=== PATIENT | female | born 1975 | race Hispanic/Latino ===

== ENCOUNTER 2018-08-26 10:03 | Emergency (ER) | payer OTHER ==
[~2018-08-26] VITALS: Ht 157.5 cm; Wt 88.9 kg
== END 2018-08-26 11:29 | disposition home or self-care (01) ==
LOC: FSED 10:03
DX: M54.6 Pain in thoracic spine (principal); M54.5 Low back pain; M62.830 Muscle spasm of back; I10 Essential (primary) hypertension; E11.9 Type 2 diabetes mellitus without complications
CPT/HCPCS: 80048; 81003; 99284

== ENCOUNTER 2020-05-30 07:47 | Observation (INO) | payer OTHER ==
[2020-05-28 13:47] LABS: BASOPHILS # (AUTO) 0.1 (0.0-0.1); BASOPHILS % 0.6 % (0.0-1.0); EOSINOPHILS # (AUTO) 0.2 (0.0-0.4); HEMATOCRIT 44.4 % (34.2-44.1); HEMOGLOBIN 14.5 g/dL (12.0-16.0); LYMPHOCYTES # (AUTO) 2.2 (1.0-3.2); LYMPHOCYTES % 24.8 % (18.0-39.1); MEAN CORPUSCULAR HEMOGLOBIN 27.8 pg (28-32); MEAN CORPUSCULAR HGB CONC 32.7 g/dL (31-35); MEAN CORPUSCULAR VOLUME 85.1 fL (81-99); MONOCYTES # (AUTO) 0.5 (0.2-0.8); MONOCYTES % 6.1 % (4.4-11.3); NEUTROPHILS # (AUTO) 5.8 (2.1-6.9); NEUTROPHILS % 65.8 % (38.7-80.0); PLATELET COUNT 269 x10e3/uL (140-360); RED BLOOD COUNT 5.22 x10e6/uL (3.6-5.1); RED CELL DISTRIBUTION WIDTH 13.3 % (11.7-14.4)
[2020-05-28 14:01] LABS: INR 0.83; PARTIAL THROMBOPLASTIN TIME 24.8 seconds (23.8-35.5); PROTHROMBIN TIME 11.8 seconds (11.9-14.5)
[2020-05-28 14:05] LABS: ANION GAP 13.9 mmol/L (8-16); BLOOD UREA NITROGEN 18 mg/dL (7-26); BUN/CREATININE RATIO 25 (6-25); CARBON DIOXIDE 24 mmol/L (22-29); CHLORIDE 104 mmol/L (98-107); CREATININE, SERUM 0.73 mg/dL (0.57-1.11); EST GLOMERULAR FILTRATION RATE > 60 ML/MIN (60-); GLUCOSE 71 mg/dL (74-118); POTASSIUM 3.9 mmol/L (3.5-5.1); SODIUM 138 mmol/L (136-145)
--- NOTE | 2020-05-28 14:26 | Diagnostic Imaging Report ---
EXAMINATION: CHEST 2 VIEWS INDICATION: Preop for hysterectomy ^[id number] ^1355 ^PRE OP COMPARISON: None FINDINGS: TUBES and LINES: None. LUNGS: Lungs are well inflated. Lungs are clear. There is no evidence of pneumonia or pulmonary edema. PLEURA: No pleural effusion or pneumothorax. HEART AND MEDIASTINUM: The cardiomediastinal silhouette is unremarkable. BONES AND SOFT TISSUES: No acute osseous lesion. Soft tissues are unremarkable. UPPER ABDOMEN: No free air under the diaphragm. IMPRESSION: No acute thoracic abnormality. Signed by: Dr. Rolando Spence M.D. on 05/28/2020 2:22 PM
[~2020-05-30] VITALS: Ht 157.5 cm; Wt 88.0 kg
[~2020-05-30 07:47] MED LIST: ATORVASTATIN CA20 MG PO; BASAGLAR K100 UNIT/1 SQ; IBUPROFEN 800MG/ 200ML 200 ML IV ONE; LIDOCAINE HCL (LTA) 4 ML SOLN ONE; LISINOPRIL10 MG PO; OZEMPIC1 MG/0.75 SC; TRICOR48 MG PO
[2020-05-30] MEDS ORDERED: VANCOMYCIN HCL 1 GM VIAL ONE (08:18)
[2020-05-30] MEDS ORDERED: BUPIVACAINE 0.5%/EPI 30 ML SDV INJ ONE (08:18)
[2020-05-30] MEDS ORDERED: THROMBIN FOR SOLN 5,000 UNIT VIAL ONE (08:18)
[2020-05-30] MEDS ORDERED: CELEBREX200 MG PO (08:56)
[2020-05-30] MEDS ORDERED: CEFAZOLIN SOD 1 GM/NS 50ML 100 ML IV ONE (09:18)
[2020-05-30] MEDS ORDERED: DEXTROSE 5% 250ML 250 ML IV ONE (09:35)
[2020-05-30] MEDS ORDERED: HYDROMORPHONE 2MG/ML 2 MG/ML ML IV PRN (11:15)
[2020-05-30] MEDS ORDERED: PROMETHAZINE HCL (IM) 25 MG/ML VIAL IM PRN (11:15)
[2020-05-30] MEDS ORDERED: ACETAMINOPHEN 325 MG TAB PO PRN (11:15)
[2020-05-30] MEDS ORDERED: LACTATED RINGER'S 1,000 ML IV SCH (11:15)
[2020-05-30] MEDS ORDERED: CARISOPRODOL 350 MG TAB PO PRN (11:15)
[2020-05-30] MEDS ORDERED: OXYCODONE/ACETAMINOPHEN 5-325 1 EACH TABLET PO PRN (11:15)
[2020-05-30] MEDS ORDERED: MAGNESIUM/ALUMINUM/SIMETHICONE 30 ML UDC PO PRN (11:15)
[2020-05-30] MEDS ORDERED: MORPHINE SULFATE 5 MG/ML VIAL IM PRN (11:15)
[2020-05-30] MEDS ORDERED: ONDANSETRON HCL INJ 2MG/ML 2ML 2 MG/ML VIAL IV PRN (11:15)
[2020-05-30] MEDS ORDERED: CEPACOL SORE THROAT LOZENGES PO PRN (11:15)
--- NOTE | 2020-05-30 11:40 | Operative Report ---
DATE OF PROCEDURE: 05/30/2020 SURGEON: Dennis Velasquez MD PREOPERATIVE DIAGNOSIS: Right L5-S1 disk herniation with radiculopathy, M51.17. POSTOPERATIVE DIAGNOSIS: Right L5-S1 disk herniation with radiculopathy, M51.17. PROCEDURE: Right L5-S1 laminotomy, medial facetectomy, and microsurgical diskectomy, 20708. ANESTHESIA: General. INDICATIONS: The patient is a woman, who presents with a large right L5-S1 disk herniation with radiculopathy and was taken to surgery for microsurgical diskectomy. PROCEDURE IN DETAIL: After induction of general anesthesia, the patient was placed on the operating table in prone position over a Misael frame. Lumbar region was prepped and draped in sterile fashion. A preoperative x-ray was obtained. A small midline incision was created. Lumbar fascia was opened to the right of midline and a subperiosteal dissection was carried out to expose the right-sided L5 and S1 lamina and the medial aspect of the facet joint. A second x-ray confirmed correct localization. The operating microscope was brought in. A high-speed drill equipped with godwin bur was used to drill the inferior aspect of the lamina of L5 and the medial rim of the L5-S1 facet joint and superior rim of the lamina of S1. The ligamentum flavum was resected. The dural sac and the right S1 nerve root were exposed. The nerve root was slightly retracted medially. The epidural veins were bipolar coagulated and divided with micro scissors. The herniated disk material immediately came into view, markedly compressing the S1 nerve root. The posterior longitudinal ligament was incised with a #11 blade and herniated disk material was retrieved with micro pituitary and removed as a large fragment of disk. The opening into the annulus of the disk was enlarged with a #11 blade and loose contents of the disk were thoroughly evacuated with curettes and pituitary instruments. Meticulous hemostasis was secured. Retractor was removed. The lumbar fascia was closed with 0 Vicryl suture. Subcutaneous layer was closed with 2-0 Vicryl sutures and the skin was closed with 3-0 Monocryl sutures in subcuticular fashion. Steri-Strips and dressing were applied. The patient was awakened, extubated, and taken to postanesthesia care unit in stable condition. No intraoperative complications were encountered. ESTIMATED BLOOD LOSS: 10 mL. MD KESHIA Bazan /[id number]
[2020-05-30] MEDS ORDERED: DEXAMETHASONE SOD PHOS INJ 4 MG/ML VIAL ONE (12:36)
[2020-05-30] MEDS ORDERED: GLYCOPYRROLATE INJ 0.2 MG/ML VIAL ONE (12:36)
[2020-05-30] MEDS ORDERED: SEVOFLURANE INHAL SOLN 250 ML PEN BTL ONE (12:36)
[2020-05-30] MEDS ORDERED: ONDANSETRON HCL INJ 2MG/ML 2ML 2 MG/ML VIAL ONE (12:36)
[2020-05-30] MEDS ORDERED: LIDOCAINE HCL 2% LOCAL INJ 5 ML SDV VIAL INJ ONE (12:36)
[2020-05-30] MEDS ORDERED: ROCURONIUM BROMIDE 10 MG/ML 5ML VIAL IV ONE (12:36)
[2020-05-30] MEDS ORDERED: NEOSTIGMINE 1 MG/ML 10ML VIAL ONE (12:36)
[2020-05-30] MEDS ORDERED: PROPOFOL IV EMULSION 10 MG/ML 20 ML VIAL ONE (12:36)
[2020-05-30] MEDS ORDERED: MIDAZOLAM HCL 2 MG/2 ML VIAL ONE (12:40)
[2020-05-30] MEDS ORDERED: FENTANYL CITRATE/PF 100MCG/2 ML INJ ONE (12:40)
[2020-05-30 16:19] VITALS: BP 118/64
[2020-05-30 16:22] VITALS: BP 124/69
[2020-05-30] MEDS: CEFAZOLIN SOD 1 GM/NS 50ML 50 ML IV SCH (17:23)
[2020-05-30 20:00] VITALS: BP 125/77
[2020-05-30] MEDS ORDERED: ZOLPIDEM TARTRATE 5 MG TAB PO PRN (21:00)
[2020-05-30] MEDS ORDERED: ATORVASTATIN 20 MG TAB PO SCH (21:00)
[2020-05-30] MEDS ORDERED: CELECOXIB PO SCH (21:00)
[2020-05-30] MEDS ORDERED: INSULIN GLARGINE 100 UNITS/ML VIAL SQ SCH (21:00)
[2020-05-30] MEDS ORDERED: CELECOXIB 200 MG CAP PO SCH (21:00)
[2020-05-30] MEDS ORDERED: [UNRECOGNIZED DRUG - OTHER] SQ SCH (21:00)
[2020-05-30] MEDS ORDERED: INSULIN GLARGINE HUM REC ANLOG 70 UNIT SQ SCH (21:00)
--- NOTE | 2020-05-31 00:41 | NUR ---
Received report from nurse.
[2020-05-31] MEDS: CEFAZOLIN SOD 1 GM/NS 50ML 50 ML IV SCH ×2 (02:00→09:05)
[2020-05-31 04:00] VITALS: BP 110/71
[2020-05-31 07:52] VITALS: BP 103/61
[2020-05-31] MEDS ORDERED: [UNRECOGNIZED DRUG - OTHER] SQ SCH (09:00)
[2020-05-31] MEDS ORDERED: LISINOPRIL 10 MG TAB PO SCH (09:00)
[2020-05-31] MEDS ORDERED: INSULIN GLARGINE 100 UNITS/ML VIAL SQ SCH (09:00)
[2020-05-31] MEDS ORDERED: INSULIN GLARGINE HUM REC ANLOG 65 UNIT SQ SCH (09:00)
[2020-05-31] MEDS ORDERED: LISINOPRIL 20 MG TAB PO SCH (09:00)
[2020-05-31] MEDS ORDERED: FENOFIBRATE 48 MG TAB PO SCH (09:00)
--- NOTE | 2020-05-31 09:30 | NUR ---
patient discharged. IV access removed. dressing removed from incision on back. at bedside for discharge instructions and showed incision. patient and denied any questions regarding discharge instructions, prescriptions or follow ups needed. patient wheeled off unit in stable condition with all belongings to 's personal vehicle.
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
[2020-06-02] MEDS ORDERED: (Semaglutide (Ozempic) 1 MG) SC SCH (09:00)
== END 2020-05-31 09:47 | disposition home or self-care (01) ==
LOC: OR 07:47 → PACU V 11:04 → MED/SURG 15:50
PROVIDERS: ADMIT Neurological Surgery; ATTEND Neurological Surgery
DX: M51.17 Intervertebral disc disorders with radiculopathy, lumbosacral region (principal); E11.9 Type 2 diabetes mellitus without complications; I10 Essential (primary) hypertension; R12 Heartburn; Z79.4 Long term (current) use of insulin; Z01.810 Encounter for preprocedural cardiovascular examination; Z01.812 Encounter for preprocedural laboratory examination; Z01.818 Encounter for other preprocedural examination; Z11.59 Encounter for screening for other viral diseases
CPT/HCPCS: 36415 ×3; 63047; 71046; 72020; 80048; 82948 ×2; 85025; 85610; 85730; 86850; 86900; 88304; 93005; G0378 ×2; J0690 ×2; J1100; J1170; J2001; J2405; J2704; J2710; J3370; J7070; U0002; J2250; J3010

== ENCOUNTER 2020-10-18 19:57 | Emergency (ER) | payer OTHER ==
[~2020-10-18] VITALS: Ht 157.5 cm; Wt 88.0 kg
[~2020-10-18 19:57] MED LIST changes: +CELEBREX200 MG PO; -IBUPROFEN 800MG/ 200ML 200 ML IV ONE; -LIDOCAINE HCL (LTA) 4 ML SOLN ONE
[2020-10-18] MEDS ORDERED: KETOROLAC TROMETHAMINE 30 MG/ML VIAL IV STA (20:06)
[2020-10-18 20:13] LABS: BASOPHILS % 0.4 % (0.0-1.0); EOSINOPHILS # (AUTO) 0.3 (0.0-0.4); EOSINOPHILS % 3.9 % (0.0-6.0); HEMATOCRIT 43.5 % (34.2-44.1); HEMOGLOBIN 13.7 g/dL (12.0-16.0); LYMPHOCYTES # (AUTO) 2.5 (1.0-3.2); LYMPHOCYTES % 32.4 % (18.0-39.1); MEAN CORPUSCULAR HEMOGLOBIN 27.2 pg (28-32); MEAN CORPUSCULAR HGB CONC 31.5 g/dL (31-35); MEAN CORPUSCULAR VOLUME 86.3 fL (81-99); MONOCYTES # (AUTO) 0.4 (0.2-0.8); MONOCYTES % 5.6 % (4.4-11.3); NEUTROPHILS # (AUTO) 4.4 (2.1-6.9); NEUTROPHILS % 56.7 % (38.7-80.0); PLATELET COUNT 268 x10e3/uL (140-360); RED BLOOD COUNT 5.04 x10e6/uL (3.6-5.1)
[2020-10-18] MEDS ORDERED: ONDANSETRON HCL INJ 2MG/ML 2ML 2 MG/ML VIAL IV PRN (20:15)
[2020-10-18] MEDS ORDERED: FENTANYL CITRATE/PF 100MCG/2 ML INJ IV PRN (20:15)
[2020-10-18] MEDS ORDERED: SODIUM CHLORIDE 0.9% 1000ML 1,000 ML IV SCH (20:15)
[2020-10-18 20:24] LABS: CLARITY,URINE CLEAR (CLEAR); COLOR,URINE YELLOW (YELLOW); LEUKOCYTE ESTERASE ,URINE NEGATIVE (NEGATIVE); NITRITE,URINE NEGATIVE (NEGATIVE); PROTEIN,URINE DIPSTICK NEGATIVE (NEGATIVE)
[2020-10-18 20:25] LABS: KETONES,URINE NEGATIVE (NEGATIVE); URINE UROBILINOGEN 0.2 mg/dL (0.2 - 1)
[2020-10-18 20:27] LABS: ALANINE AMINOTRANSFERASE 22 IU/L (0-55); ALBUMIN 3.8 g/dL (3.5-5.0); ALBUMIN/GLOBULIN RATIO 1.2 (0.8-2.0); ALKALINE PHOSPHATASE 76 IU/L (40-150); ANION GAP 17.9 mmol/L (8-16); BLOOD UREA NITROGEN 18 mg/dL (7-26); BUN/CREATININE RATIO 22 (6-25); CALCIUM 8.7 mg/dL (8.4-10.2); CARBON DIOXIDE 21 mmol/L (22-29); CHLORIDE 105 mmol/L (98-107); CREATININE, SERUM 0.83 mg/dL (0.57-1.11); EST GLOMERULAR FILTRATION RATE > 60 ML/MIN (60-); GLUCOSE 228 mg/dL (74-118); POTASSIUM 3.9 mmol/L (3.5-5.1); SODIUM 140 mmol/L (136-145)
[2020-10-18] MEDS ORDERED: LIDOPATCH1 EACH TOP (21:36)
[2020-10-18 21:37] VITALS: BP 112/96
== END 2020-10-18 21:45 | disposition home or self-care (01) ==
LOC: ER 20:05
DX: M54.5 Low back pain (principal); R10.9 Unspecified abdominal pain; I10 Essential (primary) hypertension; E11.65 Type 2 diabetes mellitus with hyperglycemia; E78.5 Hyperlipidemia, unspecified
CPT/HCPCS: 36415; 74176; 80053; 81001; 84702; 85025; 99284; J1885; J3010; J7030